=== PATIENT | male | born 1985 | race African-American/Black ===

== ENCOUNTER 2018-05-15 08:47 | Emergency (ER) | payer SELFPAY ==
[~2018-05-15] VITALS: Ht 167.6 cm; Wt 110.0 kg
[2018-05-15 11:59] VITALS: BP 130/87
[2018-05-15] MEDS ORDERED: BACITRACIN ZINC OINT UDPKT TOP ONE (12:00)
[2018-05-15] MEDS ORDERED: TETANUS, DIPHTHERIA, PERTUSSIS VAC/PF 0.5ML (>7YR OLD) IM ONE (12:00)
[2018-05-15] MEDS ORDERED: LIDOCAINE HCL/PF 1% 10 MG/ML 5ML VIAL IJ ONE (12:00)
== END 2018-05-15 13:49 | disposition home or self-care (01) ==
LOC: ER 10:10
DX: S01.81XA Laceration without foreign body of other part of head, initial encounter (principal); F12.10 Cannabis abuse, uncomplicated; Y08.89XA Assault by other specified means, initial encounter; Y93.89 Activity, other specified; Y92.89 Other specified places as the place of occurrence of the external cause; Y99.8 Other external cause status; Z90.89 Acquired absence of other organs
CPT/HCPCS: 12014; 90471; 90715; 99283; J3490